=== PATIENT | male | born 1960 | race Caucasian/White ===

== ENCOUNTER 2018-04-29 07:59 | Day surgery (SDC) | payer BC ==
--- OUTSIDE RECORDS SUMMARY | 2018-04-29 08:04 | XMS REPORT ---
:1960 [facility] [address] [place] [address] Care Team Providers Name Role Phone ORIANA MARCH Primary Care Provider Unavailable ORIANA MARCH Unavailable Unavailable Problems This patient has no known problems. Allergies, Adverse Reactions, Alerts This patient has no known allergies or adverse reactions. Medications This patient has no known medications. Results Test Description Test Time Test Comments Text Results Atomic Results Result Comments Lipid Profile 2016-11-21 18:39:00 Test Item Value Reference Range Comments Cholesterol (test code=CHOL) 141 mg/dL 0-200 Triglycerides (test code=TRIG) 39 mg/dL 9-200 HDL (test code=HDL) 69 mg/dL 50-60 Chol/HDL (test code=CHOLPHDL) 2.0 Ratio 0.0-4.4 LDL, Calculated (test 64 mg/dL 0-130 (NOTE)RISK OF HEART DISEASEPublished code=LDLC) by [place] Heart AssociationAnalyte Optimal Boderline Increased RiskCHOL <200 200-239 >240TRIG <150 150-199 >200HDL Male: >60 <40HDL Female: >60 <50LDL <100 130-159 >160LDL NEAR OPTIMAL IS 100-129 VLDL (test code=VLDL) 8 mg/dL 5-40 LDL/HDL (test code=LDLPHDL) 1
[2018-04-29] MEDS ORDERED: Ringers Lactate 1,000 ML IV ONE (08:28)
[2018-04-29] MEDS ORDERED: CEFAZOLIN 1GM (PREMIX IV) 1 GM/50 ML BAG ONE (08:28)
[2018-04-29] MEDS ORDERED: BUPIVACA 0.25%/EPI 0.0005% MDV 50 ML VIAL ONE (09:15)
[2018-04-29] MEDS ORDERED: PROPOFOL 200 MG/20 ML VIAL IV ONE (10:08)
[2018-04-29] MEDS ORDERED: LIDOCAINE 2% MPF 5 ML VIAL ONE (10:08)
[2018-04-29] MEDS ORDERED: MIDAZOLAM HCL 2 MG/2 ML INJ ONE (10:08)
[2018-04-29] MEDS ORDERED: FENTANYL CITR 100 MCG/2 ML ONE (10:08)
[2018-04-29] MEDS ORDERED: ROCURONIUM 50 MG/5 ML VIAL IV ONE (10:08)
--- NOTE | 2018-04-29 10:47 | P.OP ---
Preoperative diagnosis: Supra-Umbilical Hernia Postoperative diagnosis: Supra-Umbilical Hernia Primary procedure: Open Repair of Supra-Umbilical Hernia with Mesh Anesthesia: GETA + Local Estimated blood loss: <2cc Specimen: Hernia contents Findings: ~1.5cm hernia defect Complications: None Implants: 4.3cm bard round mesh Transferred to: Recovery Room Condition: Good
[2018-04-29] MEDS ORDERED: KETOROLAC 30 MG/ML INJ ONE (10:52)
[2018-04-29] MEDS ORDERED: ONDANSETRON 4 MG/2 ML VIAL ONE (11:08)
[2018-04-29] MEDS: MEPERIDINE HCL 25 MG/0.5 ML ONE ×2 (11:18→11:23)
--- NOTE | 2018-04-29 11:28 | EKG ---
Test Date: 2018-04-29 Test Time: 09:21:08 Fire Protection Designer: ANDRES MEASUREMENT RESULTS: Intervals: Rate: 60 VA: 166 QRSD: 88 QT: 384 QTc: 384 [place]: P: 82 VA: 166 QRS: 84 T: 85 INTERPRETIVE STATEMENTS: Normal sinus rhythm Normal ECG No previous ECG available for comparison Electronically Signed On 04-29-18 11:27:37 SURGERY SPECIALIST by Simon Billingsley
[2018-04-29] MEDS: MEPERIDINE HCL 50 MG/ML AMP ONE ×2 (11:33→11:38)
[2018-04-29] MEDS: HYDROMORPHONE HCL 1 MG/ML INJ ONE ×2 (11:42→11:47)
[2018-04-29] MEDS ORDERED: HYDROCODONE/APAP 5/325 MG TAB ONE (12:40)
--- NOTE | 2018-04-29 21:52 | OP ---
Date of Procedure: 04/29/2018 Surgeon: Damián Norwood MD, Preoperative Diagnosis: Supraumbilical hernia. Postoperative Diagnosis: Supraumbilical hernia. Procedure Performed: Open repair of supraumbilical hernia with mesh. Anesthesia: General endotracheal plus local with 0.25% Marcaine. Estimated Blood Loss: Less than 2 cc. Specimens: Hernia contents. Findings: A 1.5 cm hernia defect. Complications: None. Implants: A 4.3 cm Bard, round, Ventralight mesh. Disposition: Transferred to recovery room in good condition. Procedure In Detail: After informed consent was obtained, the patient was brought to the operating r oom, prepped and draped in the usual sterile fashion. After adequate anesthesia was achieved, a supr aumbilical incision was made over the area of the hernia defect. Dissection was continued down throu gh the subcutaneous fat to expose the hernia sac, which had a quite a narrow neck approximately 1.5 c m. This was circumferentially dissected. The hernia sac was opened and the hernia contents were del ivered out and ligated at this time and had a hyperemic appearance. The remainder of the abdominal c ontents returned to the preperitoneal space and a finger sweep was performed to ensure that there was nothing obstructing the approximation of the mesh to the anterior abdominal wall. Two interrupted 2 -0 PDS sutures were passed through the fascia and through the 4.3 cm Bard Ventralight round mesh to p lace in the preperitoneal space and the fascia was grasped with Tunde clamps and elevated. The mesh was then brought up using the Sail to good close approximation of the anterior abdominal wall and a finger sweep was performed to ensure there were no contents between the abdominal wall and the mesh a nd then the mesh was secured to the anterior abdominal wall with 2 stitches as described. The fascia over the top was then closed through the Sail portion of the mesh to imbricate the tissues over the top for double-layer closure. The Sail was then removed appropriately and the area was copiously irr igated. The skin was then closed with a 4-0 Monocryl in a running fashion. Dermabond was placed ove r the top. The patient tolerated the procedure well without evidence of complication, transferred to the PACU in good condition. All counts were correct at the end of the case. FREDIS/ROSITA Voice ID: [id number] Report ID: [id number]
== END 2018-04-29 13:33 | disposition home or self-care (01) ==
LOC: OR 07:59
PROVIDERS: ATTEND Surgery
PROC: 0WUF0JZ Supplement Abdominal Wall with Synthetic Substitute, Open Approach (ICD-10-PCS; principal; 2018-04-29 09:30)
DX: K43.9 Ventral hernia without obstruction or gangrene (principal); F17.210 Nicotine dependence, cigarettes, uncomplicated
CPT/HCPCS: 88302; 93005; J0690; J1170; J2175; J2250; J2405; J2704; J3010